=== PATIENT | male | born 1980 | race Caucasian/White ===

== ENCOUNTER 2022-04-09 14:27 | Emergency (ER) | payer OTHER, SELFPAY ==
[2022-04-09] MEDS ORDERED: Boostrix 0.5 ML (Tdap) VIAL (>/=7 yrs of age) ONE (14:53)
[2022-04-09] MEDS ORDERED: Lidocaine 1% (PF) 30 ML VIAL ONE (14:53)
[2022-04-09] MEDS ORDERED: Bacitracin 1 PK ONE (16:20)
== END 2022-04-09 16:28 | disposition home or self-care (01) ==
LOC: MADERS 14:27
DX: S61.211A Laceration without foreign body of left index finger without damage to nail, initial encounter (principal); H54.40 Blindness, one eye, unspecified eye; W20.8XXA Other cause of strike by thrown, projected or falling object, initial encounter; Y92.828 Other wilderness area as the place of occurrence of the external cause; Z23 Encounter for immunization
CPT/HCPCS: 12001; 90471; 90715; J2001